=== PATIENT | male | born 1980 | race African-American/Black ===

== ENCOUNTER 2020-08-10 08:19 | Emergency (ER) | payer OTHER ==
[~2020-08-10] VITALS: Ht 182.9 cm; Wt 91.0 kg
[2020-08-10 08:23] VITALS: BP 127/70
== END 2020-08-10 09:02 | disposition left against medical advice (07) ==
LOC: ER 08:19
DX: R42 Dizziness and giddiness (principal); F17.200 Nicotine dependence, unspecified, uncomplicated
CPT/HCPCS: 93005; 99283